=== PATIENT | female | born 1960 | race American Indian/Alaskan Native ===

== ENCOUNTER 2017-06-10 08:57 | Emergency (ER) | payer OTHER ==
[2017-06-10 09:11] VITALS: BP 164/99
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
== END 2017-06-10 12:21 | disposition home or self-care (01) ==
LOC: ED 08:57
DX: M79.1 Myalgia (principal); M25.511 Pain in right shoulder; M25.561 Pain in right knee; I10 Essential (primary) hypertension; E11.9 Type 2 diabetes mellitus without complications

== ENCOUNTER 2017-06-28 18:11 | Emergency (ER) | payer OTHER ==
[2017-06-28] MEDS ORDERED: MOTRIN PO ONE (19:48)
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
[2017-06-28] MEDS ORDERED: XYLOCAINE 1% MPF 5 mL INFILTRATI ONE (22:01)
[2017-06-28] MEDS ORDERED: ROCEPHIN IM ONE (22:01)
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
[2017-06-28 22:41] VITALS: BP 162/95
== END 2017-06-28 22:41 | disposition home or self-care (01) ==
LOC: ED 18:11
DX: S13.4XXA Sprain of ligaments of cervical spine, initial encounter (principal); S76.011A Strain of muscle, fascia and tendon of right hip, initial encounter; S33.9XXA Sprain of unspecified parts of lumbar spine and pelvis, initial encounter; M54.2 Cervicalgia; J18.9 Pneumonia, unspecified organism; I10 Essential (primary) hypertension; E11.9 Type 2 diabetes mellitus without complications; Z91.040 Latex allergy status; V49.49XA Driver injured in collision with other motor vehicles in traffic accident, initial encounter; Y93.89 Activity, other specified; Y92.89 Other specified places as the place of occurrence of the external cause; Y99.8 Other external cause status
CPT/HCPCS: 71046; 72040; 72070; 72100; 73502; 96372; 99283; J0696

== ENCOUNTER 2018-01-25 18:15 | Emergency (ER) | payer OTHER ==
[~2018-01-25 18:15] MED LIST: ADRENALIN ONE; ATROPINE 0.1% (CARDIAC) ONE; CALCIUM CHLORIDE IV ONE; SODIUM BICARBONATE IV ONE
--- NOTE | 2018-01-25 19:24 | Emergency Department Report ---
ED CPR HPI - General Chief Complaint: Cardiac Arrest/CPR Stated Complaint: CARDIAC ARREST Time Seen by Provider: 01/25/18 19:12 Source: EMS Mode of arrival: Stretcher Limitations: Altered Mental Status - History of Present Illness Initial Comments: Patient was brought in by EMS after she was found unconscious inside her car which was parked by roadside. According to EMS prior to their arrival another group of EMS had tried to resuscitate her for 20 minutes. Patient was asystolic when EMS arrived. They put in a Combitube and gave her some epinephrine and did an Accu-Chek and her blood sugar was 62. Patient was given 1 amp of D50 by EMS. Accu-Chek rechecked in the ED was 185. CPR was continued by EMS until patient arrived in the ED by then CPR/ACLS has been ongoing for 35 minutes from the time EMS saw her on the roadside unconscious. In the emergency room patient has no pulse she was still asystolic. CPR/ACLS was continued and Combitube was changed to 7.5 ETT with the glidoscope by me. Multiple doses of epinephrine, bicarbonate, calcium chloride and 1 amp of atropine was given in the emergency room. The CPR/ACLS continued for another 45 minutes in the emergency room, however the patient was unable to regain her pulse. She was shocked once when she went into V. fib. in the ED. Patient remained asystolic in the emergency room afterwards and CPR was continued. Ultrasound of the heart showed no cardiac activity. She was pronounced at 6:55 PM. I spoke with the daughters in the emergency room and informed them that their mother have . Complaint: found unresponsive Place: street Bystander CPR Performed: No Initial Findings in the Field: unresponsive, no pulse ROSC in the Field: No Treatments Prior to Arrival: other airway device, chest compressions, epinephrine mgs #, glucose - Related Data Previous Rx's Medication Instructions Recorded Last Taken Type HYDROcodone/APAP 5-325 [[place] 1 each PO Q6HR PRN #20 tablet 03/13/15 Unknown Rx 5/325] Meloxicam [Mobic] 7.5 mg PO QDAY #30 tablet 03/13/15 Unknown Rx Prednisone [predniSONE 5 mg (6-Day 5 mg PO .TAPER #1 tab.ds.pk 03/13/15 Unknown Rx Pack, 21 Tabs)] Acetaminophen 500 mg PO Q6H #30 tablet 06/10/17 Unknown Rx Diclofenac Sodium [Voltaren] 100 gm TP Q6H #1 gel..gram. 06/10/17 Unknown Rx Azithromycin [Zithromax Z-ELENA] 250 mg PO DAILY #6 tablet 06/28/17 Unknown Rx Cyclobenzaprine [Flexeril] 10 mg PO QHS PRN #7 tablet 06/28/17 Unknown Rx Ibuprofen [Motrin] 600 mg PO Q8H PRN #30 tablet 06/28/17 Unknown Rx Allergies Allergy/AdvReac Type Severity Reaction Status Date / Time latex Allergy Rash Verified 06/28/17 18:11 ED Review of Systems ROS: Stated complaint: CARDIAC ARREST Other details as noted in HPI Comment: Unobtainable due to pts medical conditions ED Past Medical Hx - Past Medical History Hx Hypertension: Yes Hx Diabetes: Yes - Surgical History Additional Surgical History: hysterectomy - Social History Smoking Status: Never Smoker Substance Use Type: None - Medications Home Medications: Home Medications Medication Instructions Recorded Confirmed Last Taken Type HYDROcodone/APAP 5-325 [[place] 1 each PO Q6HR PRN #20 tablet 03/13/15 Unknown Rx 5/325] Meloxicam [Mobic] 7.5 mg PO QDAY #30 tablet 03/13/15 Unknown Rx Prednisone [predniSONE 5 mg (6-Day 5 mg PO .TAPER #1 tab.ds.pk 03/13/15 Unknown Rx Pack, 21 Tabs)] Acetaminophen 500 mg PO Q6H #30 tablet 06/10/17 Unknown Rx Diclofenac Sodium [Voltaren] 100 gm TP Q6H #1 gel..gram. 06/10/17 Unknown Rx Azithromycin [Zithromax Z-ELENA] 250 mg PO DAILY #6 tablet 06/28/17 Unknown Rx Cyclobenzaprine [Flexeril] 10 mg PO QHS PRN #7 tablet 06/28/17 Unknown Rx Ibuprofen [Motrin] 600 mg PO Q8H PRN #30 tablet 06/28/17 Unknown Rx ED Physical Exam - General Limitations: Other (Unresponsive with CPR in progress.) - Head Head exam: Present: atraumatic, normocephalic, normal inspection - Eye Pupils: Present: other (Fixed nad dilated) - ENT ENT exam: Present: other (Large amout of vomitus in the oropharynx.) - Neck Neck exam: Present: normal inspection - Respiratory Respiratory exam: Present: other (Good bilateral breath sounds after intubation. ) - Cardiovascular Cardiovascular Exam: Present: other (asystole) - GI/Abdominal GI/Abdominal exam: Present: distended, rigid, other (No bowel sounds) - Rectal Rectal exam: Present: deferred - Extremities Exam Extremities exam: Present: normal inspection - Back Exam Back exam: Present: normal inspection - Neurological Exam Neurological exam: Present: other (Unresponsive) - Skin Skin exam: Present: warm, dry, intact, pallor - Intubation Time Out Performed: Yes Sedative: other (Unresponsive with no gag reflex) Laryngoscope: other (Glidoscope) Size: 4 ET Tube Size: 7.5 Tube Secured Location: lips (23) Tube Placement Confirmation: visualized tube passing t, equal breath sounds bilat, no breath sounds over epi, confirmation by capnometr Patient Tolerated Procedure: well Intubation Complications: none ED Medical Decision Making - Medical Decision Making Cardiac Arrest. Critical Care Time: Yes Critical care time in (mins) excluding proc time.: 55 Critical care attestation.: If time is entered above; I have spent that time in minutes in the direct care of this critically ill patient, excluding procedure time. ED Disposition Clinical Impression: Cardiac arrest Disposition: DC-20 Is pt being admited?: No Does the pt Need Aspirin: No Condition: Critical Time of Disposition: 18:55
== END 2018-01-25 22:35 ==
LOC: ED 18:15
DX: I46.9 Cardiac arrest, cause unspecified (principal); I10 Essential (primary) hypertension; E11.9 Type 2 diabetes mellitus without complications; Z90.710 Acquired absence of both cervix and uterus; Z91.040 Latex allergy status
CPT/HCPCS: 31500; 82962; J0171; J0461; 92950